=== PATIENT | female | born 1970 | race Caucasian/White ===

== ENCOUNTER 2025-01-21 09:58 | Outpatient (CLI) | payer BC ==
[2025-01-21 11:31] LABS: Leukocyte Moderate Leu/uL (Negative); Specific Gravity, Urine 1.015 (1.002-1.036)
[2025-01-21 11:32] LABS: Glucose, Urine (Dipstick) Negative (Negative); Protein, Urine (Dipstick) > or equal to 300 mg/dL (Neg-Trace)
[2025-01-21 11:40] LABS: Bacteria/HPF 1+ HPF (None Seen); RBC/HPF Greater than 50 HPF (0-3)
== END 2025-01-21 09:59 | disposition home or self-care (01) ==
LOC: LABBT 09:58
PROVIDERS: ATTEND Urology
DX: Z01.818 Encounter for other preprocedural examination (principal); N20.0 Calculus of kidney
CPT/HCPCS: 81001; 87086; 93005; 93010

== ENCOUNTER 2025-01-31 06:03 | Day surgery (SDC) | payer BC ==
[2025-01-21 10:05] VITALS: BMI 36.9
[2025-01-31] MEDS ORDERED: Ondansetron PF 4 MG/2 ML Vial ONE (07:07)
[2025-01-31] MEDS ORDERED: Rocuronium Bromide 10 MG/ML (10ML VIAL) ONE (07:07)
[2025-01-31] MEDS ORDERED: PROPOFOL 20 ML ONE (07:07)
[2025-01-31] MEDS ORDERED: fentaNYL PF 100 MCG/2 ML SYRINGE ONE (07:07)
[2025-01-31] MEDS ORDERED: Lidocaine 1% PF 5 ML VIAL ONE (07:07)
[2025-01-31] MEDS ORDERED: LevoFLOXacin D5W 500 mg (100 mL) BAG ONE (07:21)
[2025-01-31] MEDS ORDERED: Oxybutynin 5 MG TAB ONE (08:23)
[2025-01-31] MEDS ORDERED: HYDROcodone/Acetaminophen 5/325 mg Tablet ONE (09:00)
== END 2025-01-31 09:48 | disposition home or self-care (01) ==
LOC: SDC 06:03
PROVIDERS: ATTEND Urology
PROC: 0TC78ZZ Extirpation of Matter from Left Ureter, Via Natural or Artificial Opening Endoscopic (ICD-10-PCS; principal; 2025-01-31)
DX: N13.2 Hydronephrosis with renal and ureteral calculous obstruction (principal); E11.9 Type 2 diabetes mellitus without complications; Z79.84 Long term (current) use of oral hypoglycemic drugs; Z88.1 Allergy status to other antibiotic agents
CPT/HCPCS: 82365; 88300; C1769; C2617; J1100; J1956; J2250; J2405; J2704